=== PATIENT | male | born 1940 | race American Indian/Alaskan Native ===

== ENCOUNTER 2017-06-12 07:51 | Outpatient (CLI) | payer MEDICARE ==
--- NOTE | 2017-06-12 08:59 | XRay Report ---
Bilateral ankle: History: Ankle pain. Findings: There is mild arthritic changes noted at the talotibial joint and the subtalar joint bilaterally. Spur posterior superior and posterior inferior calcaneum. No fracture or dislocation. No soft tissue calcification. Impression: Arthritic changes as detailed above.
== END 2017-06-12 07:52 | disposition home or self-care (01) ==
LOC: SPVIMAG 07:51
PROVIDERS: ATTEND Orthopaedic Surgery
DX: M19.071 Primary osteoarthritis, right ankle and foot (principal); M19.072 Primary osteoarthritis, left ankle and foot